=== PATIENT | female | born 1955 | race African-American/Black ===

== ENCOUNTER 2022-03-29 08:39 | Inpatient (IN) | payer OTHER ==
[2022-03-29 10:42] VITALS: BMI 37.3
[2022-03-29] MEDS ORDERED: MIDAZOLAM HCL 2 MG/2 ML SINGLE DOSE VIAL ONE ×2 (11:57→12:00)
[2022-03-29] MEDS ORDERED: ROPIVACAINE HCL/PF 100 MG/20 ML VIAL ONE (11:58)
[2022-03-29] MEDS ORDERED: ONDANSETRON 4 MG/2 ML VIAL ONE ×2 (12:17→16:48)
[2022-03-29] MEDS ORDERED: TRANEXAMIC ACID 1000 MG/10 ML VIAL ONE (12:17)
[2022-03-29] MEDS ORDERED: ceFAZolin SODIUM 1 GM VIAL ONE (12:17)
[2022-03-29] MEDS ORDERED: DEXAMETHASONE SOD PHOSPHATE 4 MG/1 ML VIAL ONE (12:17)
[2022-03-29] MEDS ORDERED: PROPOFOL 20 ML ONE ×2 (12:18→15:21)
[2022-03-29] MEDS ORDERED: VANCOMYCIN 1,000 MG VIAL (RESTRICTED TO ID ONLY) ONE (12:28)
[2022-03-29] MEDS ORDERED: oxyCODONE HCL 5 MG TABLET PO PRN ×3 (12:44→18:06)
[2022-03-29] MEDS ORDERED: PROPOFOL 60 ML ONE (12:44)
[2022-03-29] MEDS ORDERED: ONDANSETRON 4 MG/2 ML VIAL IVPUSH PRN ×2 (12:44→16:12)
[2022-03-29] MEDS ORDERED: ACETAMINOPHEN INJECTION 100 ML IVPB ONE (16:06)
[2022-03-29] MEDS: ACETAMINOPHEN 1000 MG/100 ML BAG IVPB ONE (16:10)
[2022-03-29] MEDS ORDERED: MAG HYDROX/AL HYDROX/SIMETH 30 ML UNIT-DOSE CUP PO PRN (16:12)
[2022-03-29] MEDS ORDERED: MAGNESIUM HYDROX 2400MG/30ML ORAL SUSPENSION 30 ML CUP PO PRN (16:12)
[2022-03-29] MEDS ORDERED: LACTATED RINGERS SOLUTION 1,000 ML IV SCH (16:15)
[2022-03-29] MEDS ORDERED: FENTANYL CITRATE/PF 50 MCG/ML VIAL ONE (16:48)
[2022-03-29] MEDS ORDERED: oxyCODONE HCL 5 MG TABLET ONE (16:53)
[2022-03-29] MEDS ORDERED: HYDROmorphone HCl 2 MG/ML VIAL IVPB ONE (18:00)
[2022-03-29] MEDS ORDERED: HYDROmorphone HCl 2 MG/ML VIAL IVPB PRN (18:07)
[2022-03-29] MEDS: CEFAZOLIN 3 GM in DEXTROSE 5%-WATER - 100 ML IVPB SCH (20:46)
[2022-03-29] MEDS: ACETAMINOPHEN 500 MG TABLET (FP) PO SCH (21:12)
[2022-03-29] MEDS: oxyCODONE HCL 10 MG SUSTAINED ACTING TABLET PO SCH (21:14)
[2022-03-29] MEDS: ASPIRIN COATED 81 MG TABLET.EC PO SCH (21:15)
[2022-03-29] MEDS: SENNOSIDES/DOCUSATE COMBO (SENNA PLUS) TABLET (UD) PO SCH (21:16)
[2022-03-30] MEDS: CEFAZOLIN 3 GM in DEXTROSE 5%-WATER - 100 ML IVPB SCH ×2 (01:31→07:55)
[2022-03-30] MEDS: ACETAMINOPHEN 500 MG TABLET (FP) PO SCH (04:54)
[2022-03-30] MEDS: oxyCODONE HCL 5 MG TABLET PO PRN ×2 (05:29→12:49)
[2022-03-30] MEDS ORDERED: HYDROmorphone HCl 2 MG/ML VIAL IVPUSH PRN (07:57)
[2022-03-30] MEDS ORDERED: HYDROmorphone HCl 2 MG/ML VIAL IVPB PRN (08:01)
[2022-03-30 08:02] LABS: HEMATOCRIT 33.5 % (32.4-45.2); HEMOGLOBIN 11.4 G/dL (10.7-15.3); MCH 29.1 pg (25.7-33.7); MCHC 34.1 g/dl (32.0-36.0); MEAN CELL VOLUME 85.4 fl (80-96); MEAN PLT VOLUME 7.6 fl (7.5-11.1); PLATELET COUNT 336.4 10^3/uL (134-434); RBC 3.92 10^6/uL (3.60-5.2); WHITE BLOOD COUNT 11.8 10^3/uL (4.0-10.8)
[2022-03-30 08:12] LABS: CALCIUM 8.7 mg/dl (8.5-10); CREATININE 1.3 mg/dl (0.55-1.3)
[2022-03-30] MEDS: ACETAMINOPHEN 1000 MG/100 ML BAG IVPB PRN ×2 (08:41→22:14)
[2022-03-30] MEDS ORDERED: ALBUTEROL SO4 HFA INHALER IH PRN (08:45)
[2022-03-30] MEDS: TIOTROPIUM BROMIDE 2.5 MCG (SPIRIVA) RESPIMAT INHALER IH SCH (09:04)
[2022-03-30] MEDS: SERTRALINE HCL 50 MG TABLET (FP) PO SCH (09:08)
[2022-03-30] MEDS: amLODIPine BESYLATE 10 MG TABLET (FP) PO SCH (09:08)
[2022-03-30] MEDS: SENNOSIDES/DOCUSATE COMBO (SENNA PLUS) TABLET (UD) PO SCH ×2 (09:09→21:54)
[2022-03-30] MEDS: PANTOPRAZOLE 40 MG TABLET PO SCH (09:09)
[2022-03-30] MEDS: HYDROCHLOROTHIAZIDE 25 MG TABLET (FP) PO SCH (09:09)
[2022-03-30] MEDS: LOSARTAN POTASSIUM 50 MG TABLET PO SCH (09:09)
[2022-03-30] MEDS: oxyCODONE HCL 10 MG SUSTAINED ACTING TABLET PO SCH ×2 (09:10→21:53)
[2022-03-30] MEDS: ASPIRIN COATED 81 MG TABLET.EC PO SCH ×2 (09:10→21:53)
[2022-03-30 09:46] LABS: BILIRUBIN,TOTAL 0.8 mg/dl (0.2-1); TOT PROT 6.3 g/dl (6.4-8.2)
[2022-03-30 09:49] LABS: BILIRUBIN,DIRECT 0.1 mg/dL (0.0-0.2)
[2022-03-30] MEDS ORDERED: PATIENT'S OWN MEDICATION (NON-FORMULARY) (Olmesartan/Amlodipin/Hcthiazid [Olmsrtn-Amldpn-H PO SCH (10:00)
[2022-03-31] MEDS: oxyCODONE HCL 5 MG TABLET PO PRN (06:19)
[2022-03-31 07:59] LABS: HEMATOCRIT 31.6 % (32.4-45.2); HEMOGLOBIN 10.8 G/dL (10.7-15.3); MCH 29.3 pg (25.7-33.7); MCHC 34.3 g/dl (32.0-36.0); MEAN CELL VOLUME 85.3 fl (80-96); MEAN PLT VOLUME 7.8 fl (7.5-11.1); PLATELET COUNT 293.6 10^3/uL (134-434); RDW 14.9 % (11.6-15.6)
[2022-03-31] MEDS: SENNOSIDES/DOCUSATE COMBO (SENNA PLUS) TABLET (UD) PO SCH ×2 (09:50→21:55)
[2022-03-31] MEDS: amLODIPine BESYLATE 10 MG TABLET (FP) PO SCH (09:51)
[2022-03-31] MEDS: LOSARTAN POTASSIUM 50 MG TABLET PO SCH (09:51)
[2022-03-31] MEDS: HYDROCHLOROTHIAZIDE 25 MG TABLET (FP) PO SCH (09:51)
[2022-03-31] MEDS: PANTOPRAZOLE 40 MG TABLET PO SCH (09:52)
[2022-03-31] MEDS: ASPIRIN COATED 81 MG TABLET.EC PO SCH ×2 (09:52→21:55)
[2022-03-31] MEDS: SERTRALINE HCL 50 MG TABLET (FP) PO SCH (09:52)
[2022-03-31] MEDS: oxyCODONE HCL 10 MG SUSTAINED ACTING TABLET PO SCH ×2 (09:53→21:55)
[2022-03-31] MEDS: TIOTROPIUM BROMIDE 2.5 MCG (SPIRIVA) RESPIMAT INHALER IH SCH (09:54)
[2022-04-01] MEDS: ACETAMINOPHEN 1000 MG/100 ML BAG IVPB ONE (07:30)
[2022-04-01] MEDS: oxyCODONE HCL 5 MG TABLET PO PRN (08:29)
[2022-04-01] MEDS: oxyCODONE HCL 10 MG SUSTAINED ACTING TABLET PO SCH (09:50)
[2022-04-01] MEDS: PANTOPRAZOLE 40 MG TABLET PO SCH (09:50)
[2022-04-01] MEDS: amLODIPine BESYLATE 10 MG TABLET (FP) PO SCH (09:50)
[2022-04-01] MEDS: ASPIRIN COATED 81 MG TABLET.EC PO SCH ×2 (09:51→21:37)
[2022-04-01] MEDS: SERTRALINE HCL 50 MG TABLET (FP) PO SCH (09:51)
[2022-04-01] MEDS: SENNOSIDES/DOCUSATE COMBO (SENNA PLUS) TABLET (UD) PO SCH ×2 (09:51→21:38)
[2022-04-01] MEDS: LOSARTAN POTASSIUM 50 MG TABLET PO SCH (09:51)
[2022-04-01] MEDS: HYDROCHLOROTHIAZIDE 25 MG TABLET (FP) PO SCH (09:51)
[2022-04-01] MEDS: TIOTROPIUM BROMIDE 2.5 MCG (SPIRIVA) RESPIMAT INHALER IH SCH (09:52)
[2022-04-02 08:31] LABS: HEMOGLOBIN 9.9 G/dL (10.7-15.3); MCH 29.1 pg (25.7-33.7); MCHC 34.1 g/dl (32.0-36.0); MEAN CELL VOLUME 85.6 fl (80-96); PLATELET COUNT 314.5 10^3/uL (134-434); RBC 3.39 10^6/uL (3.60-5.2); RDW 14.9 % (11.6-15.6); WHITE BLOOD COUNT 13.3 10^3/uL (4.0-10.8)
[2022-04-02 08:54] LABS: ALBUMIN 2.2 g/dl (3.4-5.0); BILIRUBIN,TOTAL 1.4 mg/dl (0.2-1); CALCIUM 8.1 mg/dl (8.5-10)
[2022-04-02] MEDS ORDERED: oxyCODONE HCL 5 MG TABLET PO PRN (09:00)
[2022-04-02 09:10] LABS: PLATELET ESTIMATE ADEQUATE
[2022-04-02] MEDS: HYDROCHLOROTHIAZIDE 25 MG TABLET (FP) PO SCH (09:28)
[2022-04-02] MEDS: LOSARTAN POTASSIUM 50 MG TABLET PO SCH (09:28)
[2022-04-02] MEDS: PANTOPRAZOLE 40 MG TABLET PO SCH (09:29)
[2022-04-02] MEDS: amLODIPine BESYLATE 10 MG TABLET (FP) PO SCH (09:29)
[2022-04-02] MEDS: SENNOSIDES/DOCUSATE COMBO (SENNA PLUS) TABLET (UD) PO SCH ×2 (09:29→21:20)
[2022-04-02] MEDS: oxyCODONE HCL 10 MG SUSTAINED ACTING TABLET PO SCH ×2 (09:30→21:19)
[2022-04-02] MEDS: ASPIRIN COATED 81 MG TABLET.EC PO SCH ×2 (09:31→21:19)
[2022-04-02] MEDS: SERTRALINE HCL 50 MG TABLET (FP) PO SCH (09:31)
[2022-04-02] MEDS: TIOTROPIUM BROMIDE 2.5 MCG (SPIRIVA) RESPIMAT INHALER IH SCH (09:32)
[2022-04-02] MEDS ORDERED: POLYETHYLENE GLYCOL (HEALTHYLAX) 3350 17 GM PACKET PO SCH (11:30)
[2022-04-02] MEDS: POLYETHYLENE GLYCOL (HEALTHYLAX) 3350 17 GM PACKET PO SCH ×2 (11:58→21:19)
[2022-04-03 08:17] LABS: ALBUMIN 2.1 g/dl (3.4-5.0); BILIRUBIN,TOTAL 1.4 mg/dl (0.2-1); CALCIUM 8.1 mg/dl (8.5-10); CREATININE 1.1 mg/dl (0.55-1.3); MAGNESIUM 1.9 mg/dL (1.8-2.4); TOT PROT 5.7 g/dl (6.4-8.2)
[2022-04-03 08:57] LABS: EOS % 4.8 % (0-4.5); HEMATOCRIT 28.5 % (32.4-45.2); HEMOGLOBIN 9.3 GM/dL (10.7-15.3); LYMPH % 12.5 % (8-40); MCH 27.3 pg (25.7-33.7); MCHC 32.7 g/dl (32.0-36.0); MEAN CELL VOLUME 83.6 fl (80-96); MEAN PLT VOLUME 7.7 fl (7.5-11.1); MONO % 11.5 % (3.8-10.2); NEUT % 70.2 % (42.8-82.8); PLATELET COUNT 328 10^3/uL (134-434); RBC 3.41 M/mm3 (3.60-5.2); RDW 13.8 % (11.6-15.6); WHITE BLOOD COUNT 10.3 K/mm3 (4.0-10.0)
[2022-04-03] MEDS: amLODIPine BESYLATE 10 MG TABLET (FP) PO SCH (09:20)
[2022-04-03] MEDS: HYDROCHLOROTHIAZIDE 25 MG TABLET (FP) PO SCH (09:20)
[2022-04-03] MEDS: LOSARTAN POTASSIUM 50 MG TABLET PO SCH (09:20)
[2022-04-03] MEDS: oxyCODONE HCL 10 MG SUSTAINED ACTING TABLET PO SCH ×2 (09:21→21:17)
[2022-04-03] MEDS: POLYETHYLENE GLYCOL (HEALTHYLAX) 3350 17 GM PACKET PO SCH (09:40)
[2022-04-03] MEDS: ASPIRIN COATED 81 MG TABLET.EC PO SCH ×2 (09:42→21:16)
[2022-04-03] MEDS: SENNOSIDES/DOCUSATE COMBO (SENNA PLUS) TABLET (UD) PO SCH ×2 (09:42→21:18)
[2022-04-03] MEDS: PANTOPRAZOLE 40 MG TABLET PO SCH (09:42)
[2022-04-03] MEDS: SERTRALINE HCL 50 MG TABLET (FP) PO SCH (09:42)
[2022-04-03] MEDS: TIOTROPIUM BROMIDE 2.5 MCG (SPIRIVA) RESPIMAT INHALER IH SCH (09:43)
[2022-04-03] MEDS: oxyCODONE HCL 5 MG TABLET PO PRN ×2 (16:49→21:17)
[2022-04-03] MEDS: ACETAMINOPHEN 325 MG TABLET (FP) PO PRN (16:49)
[2022-04-04] MEDS: POLYETHYLENE GLYCOL (HEALTHYLAX) 3350 17 GM PACKET PO SCH ×2 (05:29→09:18)
[2022-04-04 05:36] VITALS: TEMP 98.4
[2022-04-04 08:23] LABS: ALBUMIN 2.1 g/dl (3.4-5.0); BILIRUBIN,TOTAL 1.5 mg/dl (0.2-1); CALCIUM 8.1 mg/dl (8.5-10); TOT PROT 5.7 g/dl (6.4-8.2)
[2022-04-04] MEDS: SENNOSIDES/DOCUSATE COMBO (SENNA PLUS) TABLET (UD) PO SCH (09:19)
[2022-04-04] MEDS: PANTOPRAZOLE 40 MG TABLET PO SCH (09:19)
[2022-04-04] MEDS: ASPIRIN COATED 81 MG TABLET.EC PO SCH (09:19)
[2022-04-04] MEDS: SERTRALINE HCL 50 MG TABLET (FP) PO SCH (09:19)
[2022-04-04] MEDS: amLODIPine BESYLATE 10 MG TABLET (FP) PO SCH (09:22)
[2022-04-04] MEDS: oxyCODONE HCL 10 MG SUSTAINED ACTING TABLET PO SCH (09:22)
[2022-04-04] MEDS: HYDROCHLOROTHIAZIDE 25 MG TABLET (FP) PO SCH (09:22)
[2022-04-04] MEDS: TIOTROPIUM BROMIDE 2.5 MCG (SPIRIVA) RESPIMAT INHALER IH SCH (09:23)
[2022-04-04] MEDS: LOSARTAN POTASSIUM 50 MG TABLET PO SCH (09:24)
[2022-04-04] MEDS: ACETAMINOPHEN 325 MG TABLET (FP) PO PRN (09:27)
[2022-04-04 09:47] LABS: BASO % 0.8 % (0-2.0); EOS % 5.5 % (0-4.5); HEMATOCRIT 26.5 % (32.4-45.2); HEMOGLOBIN 9.1 GM/dL (10.7-15.3); LYMPH % 13.6 % (8-40); MCH 28.6 pg (25.7-33.7); MCHC 34.5 g/dl (32.0-36.0); MEAN CELL VOLUME 83.1 fl (80-96); MEAN PLT VOLUME 7.5 fl (7.5-11.1); MONO % 11.4 % (3.8-10.2); NEUT % 68.7 % (42.8-82.8); PLATELET COUNT 358 10^3/uL (134-434); RBC 3.18 M/mm3 (3.60-5.2); RDW 13.8 % (11.6-15.6); WHITE BLOOD COUNT 9.1 K/mm3 (4.0-10.0)
[2022-04-04 10:02] VITALS: BP 106/40; PULSE 81; RESP 18
== END 2022-04-04 13:26 | DRG 302 ==
LOC: FASUSAT 08:39 → EDSTATUS 10:30 → FM/S 17:51 → FASUSAT 03-30 16:14
PROVIDERS: ADMIT Orthopaedic Surgery Orthopaedic Surgery of the Spine; ATTEND Orthopaedic Surgery Orthopaedic Surgery of the Spine
PROC: 0SRD0JZ Replacement of Left Knee Joint with Synthetic Substitute, Open Approach (ICD-10-PCS; principal; 2022-03-29 13:14)
DX: M17.12 Unilateral primary osteoarthritis, left knee (principal); I10 Essential (primary) hypertension; E78.5 Hyperlipidemia, unspecified; F32.A Depression, unspecified; E66.01 Morbid (severe) obesity due to excess calories; Z68.37 Body mass index [BMI] 37.0-37.9, adult; D72.829 Elevated white blood cell count, unspecified; J45.909 Unspecified asthma, uncomplicated; R26.81 Unsteadiness on feet; K59.00 Constipation, unspecified; Z79.82 Long term (current) use of aspirin; Z96.649 Presence of unspecified artificial hip joint; Z79.891 Long term (current) use of opiate analgesic
CPT/HCPCS: 36415; 73560-TC-LT-FY; 80048; 80053; 80061; 80076; 81003; 83036; 83735; 85025; 85027; 87086; 88305-TC; 88311-TC; 94760; 97010-GP; 97116-GP; 97163-GP; C1713; C1776; C1889; C9803-CS; U0003; U0005